=== PATIENT | female | born 1950 | race Caucasian/White ===

== ENCOUNTER 2019-01-24 12:40 | Emergency (ER) | payer BC ==
[2019-01-24 13:12] VITALS: BP 122/85; PULSE 59; TEMP 98.4; BMI 30.2
--- NOTE | 2019-01-24 13:25 | PDOC ---
History of Present Illness - General Chief Complaint: Eye Problem Stated Complaint: RIGHT EYE TEARING Time Seen by Provider: 01/24/19 13:24 History Source: Patient Exam Limitations: No Limitations - History of Present Illness Initial Comments: 01/24/19 13:24 Ms. Mac is a 68 yo F who presents with complaints of right eye tearing. Pt states she was at a wedding 5 days ago she had lashed placed but removed them that night Last night, she noted that her right eye became irritated and was tearing No drainage No trauma No eyelid swelling or tenderness No limitations in movement of eye No systemic signs of illness she notes that her vision seems a little blurry No known seasonal allergies Eye is not itchy ROS: GENERAL/CONSTITUTIONAL: No: fever, chills HEAD, EYES, EARS, NOSE AND THROAT: Yes: vision seems blurry CARDIOVASCULAR: No: chest pain, lightheadedness RESPIRATORY: No: cough, shortness of breath GASTROINTESTINAL: No: nausea, vomiting, diarrhea, abdominal pain MUSCULOSKELETAL: No: back pain, neck pain, joint pain SKIN: Yes: no cellulitis, lesions NEUROLOGIC: No: headache PE: Patient awake alert oriented x3 acting appropriately on exam in no acute distress Head NCAT Eyes: PERRLA, there is slight R conjunctival injection with tearing. No ciliary injection, EOMI, No pain to palpation of closed eyes. Visual Acquity : R:20/30 L: 20/30 Skin: Clean warm and dry without rash 01/24/19 13:41 01/26/19 10:15 Past History - Past Medical History Allergies/Adverse Reactions: Allergies Allergy/AdvReac Type Severity Reaction Status Date / Time Penicillins Allergy Unknown Verified 01/24/19 13:38 Home Medications: Ambulatory Orders Atorvastatin Ca [Lipitor] 10 mg PO HS 01/24/19 Ofloxacin 0.3% Ophth Soln [Ocuflox -] 1 drop OD QID #1 bottle 01/24/19 Olopatadine HCl [Pataday] 1 drop OD DAILY PRN #1 bottle 01/24/19 Ranitidine HCl 1 cap PO HS 01/24/19 Ranitidine HCl 300 mg PO DAILY 01/24/19 Valsartan [Diovan] 160 mg PO DAILY 01/24/19 COPD: No GI Disorders: Yes (hiatal hernia) HTN: Yes Hypercholesterolemia: Yes - Suicide/Smoking/Psychosocial Hx Smoking History: Never smoked Information on smoking cessation initiated: No Hx Alcohol Use: No Drug/Substance Use Hx: No *Physical Exam - Vital Signs Last Vital Signs Temp Pulse Resp BP Pulse Ox 98.4 F 59 L 16 122/85 100 01/24/19 12:41 01/24/19 12:41 01/24/19 12:41 01/24/19 12:41 01/24/19 12:41 Medical Decision Making - Medical Decision Making 01/26/19 10:18 68 yo F presenting with eye tearing Slight corneal irritation Pt has NO PAIN to suggest corneal abrasion Pupils are round and appropriately reactive to light, no hyphema or signs of foreighn body Possibly allergic conjunctivitis vs. viral conjunctivitis Will treat both Pt asked to follow up with Ophthalmology *DC/Admit/Observation/Transfer Diagnosis at time of Disposition: Eye irritation - Discharge Dispostion Disposition: HOME Condition at time of disposition: Stable Decision to Admit order: No - Prescriptions Prescriptions: Ofloxacin 0.3% Ophth Soln [Ocuflox -] 1 drop OD QID #1 bottle Olopatadine HCl [Pataday] 1 drop OD DAILY PRN #1 bottle PRN Reason: eye irritation - Referrals Referrals: Patel Chicas MD [Primary Care Provider] - - Patient Instructions Printed Discharge Instructions: Conjunctivitis (Alternative Therapy), DI for Conjunctivitis Additional Instructions: Ms. Mac Thank you for coming in to the ER today Today you were seen for a corneal irritation. Use eye drops as directed. Please keep your follow up appointment with your materials buyer. Follow up with your primary care provider within 24 to 48 hours. Avoid rubbing your eyes, because this can worsen symptoms. You can apply a cool compresses to the affected eye if you develop any swelling You can use artificial tears if needed Go to the emergency room if any new or worsening symptoms develop. Print Language: GREENLANDIC - Post Discharge Activity
[2019-01-24] MEDS ORDERED: TETRACAINE 0.5% HCL 0.6ML DROPPER.BOTTLE OD ONE (13:31)
[2019-01-24] MEDS ORDERED: FLUORESCEIN NA 1 EA STRIP OD ONE (13:31)
[2019-01-24] MEDS ORDERED: TETRACAINE 0.5% OPHTH SOLN 2 ML BOTTLE ONE (13:32)
[2019-01-24] MEDS ORDERED: FLUORESCEIN NA 1 EA STRIP ONE (13:32)
== END 2019-01-24 14:05 | disposition home or self-care (01) ==
LOC: FER 12:40
DX: H57.89 Other specified disorders of eye and adnexa (principal); I10 Essential (primary) hypertension; E78.00 Pure hypercholesterolemia, unspecified
CPT/HCPCS: 99281-25

== ENCOUNTER 2021-03-03 10:08 | Emergency (ER) | payer OTHER, BC ==
[2021-03-03 10:15] VITALS: BP 145/52; PULSE 70; TEMP 98.5; BMI 31.1
[2021-03-03] MEDS ORDERED: DIPHTH,PERTUSS(ACELL),TET 0.5 ML DISP.SYRIN IM ONE ×3 (10:44→11:11)
== END 2021-03-03 11:14 | disposition home or self-care (01) ==
LOC: JER 10:08
PROC: 3E0234Z Introduction of Serum, Toxoid and Vaccine into Muscle, Percutaneous Approach (ICD-10-PCS; principal; 2021-03-03)
DX: M25.561 Pain in right knee (principal)
CPT/HCPCS: 73562-TC-RT-FY; 90715; 99284-25